=== PATIENT | female | born 1960 | race Caucasian/White ===

== ENCOUNTER 2022-06-19 14:14 | Inpatient (IN) | payer BC, OTHER ==
[~2022-06-19] VITALS: Ht 152.4 cm; Wt 67.1 kg
--- NOTE | 2022-06-19 15:10 | NUR ---
BIBRA, C/O WEAKNESS ALL OVER GENERALIZED, HEAD ACHE THAT WONT GO AWAY.
--- NOTE | 2022-06-19 15:47 | NUR ---
PT WILL BE ADMITTED TO [facility] ROOM 115 - 2, REPORT GIVEN TO LEENA HUBER ON FLOOR, WILL TRANSFER OVER WITH ONE RN ONE DELMA AND LEGAL ASSOCIATE MACHINE ON [facility]
--- NOTE | 2022-06-19 15:50 | NUR ---
BS = 47 - D5W GIVEN IV
[2022-06-19] MEDS ORDERED: DEXTROSE 50%-WATER 50 ML DISP.SYRIN ONE (15:53)
--- NOTE | 2022-06-19 15:55 | NUR ---
IV LINE IS ESTABLISHED, BLOOD SPECIMEN COLLECTED AND SENT TO THE LAB. THE LINE IS SALINE LOCKED.
[2022-06-19] MEDS ORDERED: DEXTROSE 50%-WATER 50 ML DISP.SYRIN IV ONE (16:00)
[2022-06-19] MEDS ORDERED: IV NS 0.9% 1,000 ML BAG IV ONE (16:00)
--- NOTE | 2022-06-19 16:16 | NUR ---
MOVE SHEET SUBMITTED.
--- NOTE | 2022-06-19 16:19 | NUR ---
BS = 186
[2022-06-19 16:26] LABS: CALCIUM, SERUM 8.9 mg/dL (8.5-10.1); CARBON DIOXIDE 24 mmol/L (21-32); CHLORIDE 107 mmol/L (98-107); CREATININE 1.1 mg/dL (0.6-1.3); GLUCOSE 56 mg/dL (74-106); POTASSIUM 3.5 mmol/L (3.5-5.1); SODIUM SERUM 141 mmol/L (136-145); UREA NITROGEN, BLOOD 16 mg/dL (7-18)
[2022-06-19 16:32] LABS: ALANINE AMINOTRANSFERASE 21 U/L (12-78); ALBUMIN 3.3 g/dL (3.4-5.0); ALKALINE PHOSPHATASE 76 U/L (46-116); ASPARTATE AMINOTRANSFERASE 17 U/L (15-37); BILIRUBIN,DIRECT 0.1 mg/dL (0.0-0.2); BILIRUBIN,TOTAL 0.3 mg/dL (0.2-1.0); LIPASE 154 U/L (73-393)
[2022-06-19 16:49] LABS: BASOPHILS % (AUTO) 0.4 % (0.0-2.0); EOSINOPHILS % (AUTO) 2.7 % (0.0-6.0); HEMATOCRIT 30 % (33-45); HEMOGLOBIN 10.3 g/dL (11.5-14.8); LYMPHOCYTES % (AUTO) 25.1 % (20.0-44.0); MEAN CORPUSCULAR HGB CONC 34 g/dl (31.0-36.0); MEAN CORPUSCULAR VOLUME 83 fL (82-100); MONOCYTES # (AUTO) 0.6 K/uL (0.1-1.30); MONOCYTES % (AUTO) 7.8 % (2.0-12.0); NEUTROPHILS # (AUTO) 5.2 K/uL (1.8-8.9); PLATELET COUNT (AUTO) 332 K/uL (150-450); RED BLOOD CELL COUNT(AUTO) 3.67 MIL/uL (4.0-5.2); WHITE BLOOD COUNT (AUTO) 8.1 K/uL (4.3-11.0)
[2022-06-19] MEDS ORDERED: ATOR10TA PO (17:00)
[2022-06-19] MEDS ORDERED: ERTU15TA PO (17:00)
[2022-06-19] MEDS ORDERED: OMEP40CA21 PO (17:00)
[2022-06-19] MEDS ORDERED: METF-442 PO (17:00)
[2022-06-19] MEDS ORDERED: LEVO150T8 PO (17:00)
[2022-06-19] MEDS ORDERED: GLIP10TA11 PO (17:00)
[2022-06-19] MEDS ORDERED: KETOROLAC TROMETHAMINE INJ 30 MG/ML VIAL IV ONE (20:00)
[2022-06-19] MEDS ORDERED: KETOROLAC TROMETHAMINE INJ 30 MG/ML VIAL ONE (20:07)
[2022-06-19] MEDS ORDERED: Sodium Chloride 154 MEQ in IV 10% DEXTROSE 1,000 ML IV PRN (20:30)
[2022-06-19 20:52] LABS: BILIRUBIN,URINE NEGATIVE (NEGATIVE); COLOR,URINE YELLOW (YELLOW); LEUKOCYTE ESTERASE ,URINE TRACE (NEGATIVE); NITRITE, URINE NEGATIVE (NEGATIVE); PROTEIN,URINE NEGATIVE (NEGATIVE); UGLUCOSE 100 MG/DL mg/dL (NEGATIVE); UROBILINOGEN,URINE 0.2 EU/dL (0.2)
[2022-06-19] MEDS ORDERED: IV D5/ 0.9% NACL 1,000 ML IV PRN ×2 (21:00)
[2022-06-19 21:03] LABS: BACTERIA,URINE 1+ /HPF (None Seen); CALCIUM OXALATE CRYSTALS,UR Few /HPF (None Seen); RBC,URINE 0-2 /HPF (0-2); SQUAMOUS EPITHELIAL CELL,UR Few /HPF (None Seen)
--- NOTE | 2022-06-19 21:11 | NUR ---
blood glucose 91
[2022-06-19] MEDS ORDERED: MAG HYDROX/AL HYDROX/SIMETH 30 ML UDC PO PRN (21:30)
[2022-06-19] MEDS ORDERED: MAGNESIUM HYDROXIDE 30 ML UDC PO PRN (21:30)
[2022-06-19] MEDS ORDERED: ZOLPIDEM TARTRATE 5 MG TABLET PO PRN (21:30)
[2022-06-19] MEDS ORDERED: INSULIN REGULAR, HUMAN 100 UNIT/ML 3 ML VIAL SQ PRN (21:30)
[2022-06-19] MEDS ORDERED: Z GUARD REMEDY 4 OZ OINT TP PRN (21:30)
[2022-06-19] MEDS ORDERED: IV D5/0.45 NACL 1,000 ML IV PRN ×2 (21:30→21:44)
[2022-06-19] MEDS ORDERED: DEXTROSE 50%-WATER 50 ML DISP.SYRIN IV PRN (21:30)
[2022-06-19] MEDS ORDERED: ONDANSETRON HCL/PF 4 MG/2 ML VIAL IVP PRN (21:30)
[2022-06-19] MEDS ORDERED: BLOOD SUGAR DIAGNOSTIC 1 EACH STRIP IN SCH (23:00)
--- NOTE | 2022-06-19 23:16 | NUR ---
ATTEMPTED TO GIVE REPORT, NO ANSWER
--- NOTE | 2022-06-19 23:30 | NUR ---
GAVE REPORT TO CECILE MARINELLI FOR NHAN
[2022-06-19 23:40] VITALS: BP 132/73
[2022-06-19] MEDS: ACETAMINOPHEN 325 MG TABLET PO PRN (23:52)
--- NOTE | 2022-06-19 23:59 | NUR ---
DIRECTOR OF ATHLETICS NOTES SPOKE TO CHRISTOFER VASQUEZ AND INFORM HER PATIENT LAST BLOOD SUGAR -117, GOT AN ORDER TO CHANGE ACCU CHECK Q 2 HRS TO [id number], ORDER NOTED AND CARRIED OUT
[2022-06-20] MEDS ORDERED: INSULIN REGULAR, HUMAN 100 UNIT/ML 3 ML VIAL SQ PRN
[2022-06-20 00:14] VITALS: BP 132/73
--- NOTE | 2022-06-20 00:17 | NUR ---
PT TRANSFERRED TO [facility]
--- NOTE | 2022-06-20 00:20 | NUR ---
RN NOTES PT IN BED A/O X4 KYRGYZ SPEAKING IN NO RESPIRATORY DISTRESS, ON ROOM AIR TOLERATING WELL. PT PARK TO AMBULATE TO BED WITH ASSIST. PT PLACED ON TLE MONITOR. PT NOTED WITH IV ACCESS ON THE L HAND AND RAC #20G RUNNING D5 NS @150ML/HR TOLERATING WELL BLOOD GLUCOSE CHECKED 117 AT THIS TIME. PT ORIENTED TO ROOM AND UNIT. CALL LIGHT WITHIN REACH. TABLE WITHIN REACH. HOB ELEVATE FOR SAFETY. BILATERAL SIDE RAILS UP FOR SAFETY. BED IN A LOW POSITION BED ALARM ON DUE TO REPORTED WEAKNESS.
[2022-06-20] MEDS: BLOOD SUGAR DIAGNOSTIC 1 EACH STRIP IN SCH ×5 (00:51→22:00)
--- NOTE | 2022-06-20 01:38 | NUR ---
RN NOTES PRN MALLOX GIVEN FOR PT REPORT OF GAS. TOLERATED WELL. WILL CONTINUE TO MONITOR.
[2022-06-20 08:00] VITALS: BP 115/49
--- NOTE | 2022-06-20 08:27 | NUR ---
HEATING AND VENTILATING WORKER OPENING NOTE Patient in bed, awake. A/O x 4, able to make needs known. On room air, breathing evenly and unlabored. No SOB or s/s of distress noted. IV access on RFA #20 infusing D5 1/2 NS at 100 ml/hr and left hand #20 SL intact and patent. On tele monitoring showing SR, HR on the 60's with occasional PVCs. Safety precautions in place: bed in low, locked position siderails up x 2, call light within reach. Will continue to monitor.
[2022-06-20 08:47] LABS: ALBUMIN 2.6 g/dL (3.4-5.0); BASOPHILS % (AUTO) 0.3 % (0.0-2.0); BILIRUBIN,TOTAL 0.3 mg/dL (0.2-1.0); CALCIUM, SERUM 7.9 mg/dL (8.5-10.1); CREATININE 1.1 mg/dL (0.6-1.3); EOSINOPHILS % (AUTO) 5.1 % (0.0-6.0); HEMATOCRIT 28 % (33-45); HEMOGLOBIN 9.4 g/dL (11.5-14.8); LYMPHOCYTES # (AUTO) 1.8 K/uL (0.8-4.8); LYMPHOCYTES % (AUTO) 28.3 % (20.0-44.0); MEAN CORPUSCULAR HGB CONC 34 g/dl (31.0-36.0); MEAN CORPUSCULAR VOLUME 84 fL (82-100); MONOCYTES # (AUTO) 0.5 K/uL (0.1-1.30); MONOCYTES % (AUTO) 8.2 % (2.0-12.0); NEUTROPHILS # (AUTO) 3.6 K/uL (1.8-8.9); NEUTROPHILS % (AUTO) 58.1 % (43.0-81.0); PHOSPHORUS 4.3 mg/dL (2.5-4.9); PLATELET COUNT (AUTO) 304 K/uL (150-450); POTASSIUM 3.5 mmol/L (3.5-5.1); RED BLOOD CELL COUNT(AUTO) 3.28 MIL/uL (4.0-5.2); TOTAL PROTEIN, SERUM 5.9 g/dL (6.4-8.2); WHITE BLOOD COUNT (AUTO) 6.2 K/uL (4.3-11.0)
--- NOTE | 2022-06-20 09:00 | NUR ---
RN NOTE Patient's blood glucose is 156, refused Insulin coverage. Explained the risks of not taking the medication, patient still refused. Will continue to monitor.
[2022-06-20] MEDS: LEVOTHYROXINE SODIUM 75 MCG TABLET PO SCH (09:29)
[2022-06-20] MEDS: PANTOPRAZOLE 40 MG TABLET.DR PO SCH (09:29)
--- NOTE | 2022-06-20 10:00 | NUR ---
RN NOTE IV access on RAC got infiltrated, IV access removed. Warm compress applied. Will continue to monitor.
[2022-06-20] MEDS: ACETAMINOPHEN 325 MG TABLET PO PRN ×2 (10:24→22:32)
[2022-06-20 11:29] LABS: MAGNESIUM 1.2 mg/dL (1.8-2.4)
--- NOTE | 2022-06-20 11:38 | NUR ---
RN NOTE Call received from Eugenio from lab, Mg level is 1.23. Barbara Staton DNP notified.
[2022-06-20 12:00] VITALS: BP 125/58
[2022-06-20] MEDS ORDERED: MAGNESIUM OXIDE 400 MG TABLET PO ONE (12:00)
[2022-06-20] MEDS ORDERED: DEXTROSE 50%-WATER 50 ML DISP.SYRIN IV PRN ×2 (12:00)
[2022-06-20] MEDS ORDERED: MECLIZINE HCL 12.5 MG TABLET PO PRN (12:00)
[2022-06-20] MEDS ORDERED: MECLIZINE HCL 25 MG TABLET PO PRN (12:30)
[2022-06-20] MEDS: CEFTRIAXONE 1 G in IV D5W 50 ML IV SCH (13:20)
--- NOTE | 2022-06-20 17:30 | NUR ---
RN NOTE Patient's blood glucose is 132, Insulin coverage not given. Per Barbara Staton, DNP hold diabetic medications. Patient also refusing Insulin coverage.
[2022-06-20] MEDS ORDERED: ATORVASTATIN 10 MG TABLET PO SCH (18:00)
--- NOTE | 2022-06-20 18:30 | NUR ---
RN NOTE Patient is complaining of stomach upset and loose bowel movement after taking Magnesium supplement, patient also vomited after eating dinner. Barbara Staton DNP notified, no new orders for now. Advised patient to increase fluids as tolerated.
--- NOTE | 2022-06-20 19:17 | NUR ---
KNIFER UP CLOSING NOTE Patient in bed, awake. A/O x 4, able to make needs known. Stable on room air, breathing evenly and unlabored. No SOB or s/s of distress noted. IV access on Left hand #20 infusing D5 1/2 NS at 100 ml/hr. On tele monitoring showing SR, HR on the 60's with occasional trigemeny. All needs attended to. Due meds given. Safety precautions maintained: bed in low, locked position siderails up x 2, call light within reach. Will endorse to maintenance technician 3rd shift nurse for NHAN.
[2022-06-20 20:00] VITALS: BP 133/57
--- NOTE | 2022-06-20 21:24 | NUR ---
ANALYTICS DEVELOPER OPENING NOTES: RECEIVED PATIENT AWAKE IN BED, BED IN LOW POSITION CALL LIGHTS WITHIN REACH, NOC OMPLAIN OF PAIN AND DISCOMFORT AT THIS TIME , ON ROOM AIR SATURATING WELL, PATIENT IS A/OX4 ABLE TO MAKE NEEDS KNOWN, AMBULATORY, REMIND TO USE THE CALL LIGHTS WHEN NEEDED ASSISTANCE, PATIENT ON TELE MONITORSR-74, KEPT CLEAN AND DRY ALL NEEDS MET WILL CONTINUE TO MONITOR.
--- NOTE | 2022-06-20 23:27 | NUR ---
RN NOTES: BLOOD SUGAR-121/ NO INSULIN GIVEN PER SLIDING SCALE.
[2022-06-21 00:07] VITALS: BP 121/59
[2022-06-21 06:55] LABS: BASOPHILS % (AUTO) 0.4 % (0.0-2.0); EOSINOPHILS % (AUTO) 6.4 % (0.0-6.0); HEMATOCRIT 30 % (33-45); HEMOGLOBIN 10.2 g/dL (11.5-14.8); LYMPHOCYTES # (AUTO) 2.5 K/uL (0.8-4.8); LYMPHOCYTES % (AUTO) 37.8 % (20.0-44.0); MEAN CORPUSCULAR HGB CONC 34 g/dl (31.0-36.0); MEAN CORPUSCULAR VOLUME 84 fL (82-100); MONOCYTES # (AUTO) 0.5 K/uL (0.1-1.30); MONOCYTES % (AUTO) 6.8 % (2.0-12.0); NEUTROPHILS # (AUTO) 3.2 K/uL (1.8-8.9); NEUTROPHILS % (AUTO) 48.6 % (43.0-81.0); PLATELET COUNT (AUTO) 320 K/uL (150-450); RED BLOOD CELL COUNT(AUTO) 3.56 MIL/uL (4.0-5.2); WHITE BLOOD COUNT (AUTO) 6.7 K/uL (4.3-11.0)
--- NOTE | 2022-06-21 07:00 | NUR ---
MS RN CLOSING NOTES: PATIENT SLEEP IN BED COMFORTABLY, BED IN LOW POSITION CALL LIGHTS WITHIN REACH, NO COMPLAIN OF PAIN AND DISCOMFORT AT THIS TIME ON ROOM AIR SATURATING WELL, PATIENT IS A/OX4 ABLE TO MAKE NEEDS KNOWN, WITH IV LINE AT RFA#22 WITH ONGOING D5NS @100 ML/HR INFUSING WELL, PATIENT KEPT CLEAN AND DRY ALL NEEDS MET ENDORSE TO INCOMING SHIFT.
[2022-06-21 07:11] LABS: CALCIUM, SERUM 8.1 mg/dL (8.5-10.1); MAGNESIUM 1.3 mg/dL (1.8-2.4); PHOSPHORUS 4.4 mg/dL (2.5-4.9); POTASSIUM 3.4 mmol/L (3.5-5.1)
--- NOTE | 2022-06-21 07:30 | NUR ---
RN OPENING NOTES RECEIVED PATIENT IN BED, AWAKE, A/O X4, VERBALLY RESPONSIVE. NO SIGNS OF ACUTE DISTRESS NOTED. STABLE IN ROOM AIR, NO SOB NOTED, BREATHING EVEN AND UNLABORED. DENIES ANY PAIN AT THIS TIME. NOTED WITH IV ACCESS ON RIGHT FORE ARM #20G, INTACT AND PATENT, WITH D5 NS @ 100ML/HR RUNNING. SAFETY MEASURE IN PLACE. BED IN LOWEST AND LOCKED POSITION, SIDE RAILS UP X2, CALL LIGHT PLACED WITHIN EASY REACH. WILL CONTINUE TO MONITOR PATIENT.
[2022-06-21] MEDS: BLOOD SUGAR DIAGNOSTIC 1 EACH STRIP IN SCH ×3 (08:07→17:16)
[2022-06-21] MEDS: LEVOTHYROXINE SODIUM 75 MCG TABLET PO SCH (08:17)
[2022-06-21] MEDS: PANTOPRAZOLE 40 MG TABLET.DR PO SCH (08:17)
[2022-06-21] MEDS ORDERED: POTASSIUM CHLORIDE 20 MEQ TAB.PRT.SR PO SCH (10:30)
[2022-06-21] MEDS ORDERED: CIPR-262 PO (11:24)
[2022-06-21] MEDS ORDERED: MECL-159 PO (11:31)
[2022-06-21] MEDS ORDERED: MULT-754 PO (11:31)
[2022-06-21] MEDS: INSULIN REGULAR, HUMAN 100 UNIT/ML 3 ML VIAL SQ PRN ×2 (11:51→17:17)
[2022-06-21] MEDS: Magnesium 1GM/D5W 100ML PREMIX 100 ML IV SCH ×4 (12:03→15:50)
[2022-06-21] MEDS: CEFTRIAXONE 1 G in IV D5W 50 ML IV SCH (13:03)
--- NOTE | 2022-06-21 17:40 | NUR ---
RECRUITER SPECIALIST NOTE PATIENT DISCHARGED TO HOME IN STABLE CONDITION. PATIENT ALERT AND ORIENTED X4, NO SIGNS OF ACUTE DISTRESS. IV ACCESS REMOVED, NO BLEEDING NOTED. PRESSURE DRESSING APPLIED TO SITE. ALL BELONGINGS ACCOUNTED FOR, FORM SIGNED BY PATIENT. PATIENTS SKIN INTACT, NO SKIN ISSUES NOTED. EXITCARE FOLDER GIVEN TO PATIENT, DISCHARGE INSTRUCTIONS PROVIDED WITH VERBALIZATION OF UNDERSTANDING. MEDICATION PRESCRIPTION GIVEN TO PATIENT. PATIENT LEFT UNIT @1739, AMBULATOR WITH CANE, ASSISTED TO THE LOBBY. PICKED UP BY [email or web address], CAN #[phone], WITH MANAGER PHILOSOPHY BEN. PALM AWARE OF DISCHARGE.
== END 2022-06-21 17:45 | disposition home or self-care (01) | DRG 637 ==
LOC: ER 14:25 → TELE 22:45 → MED 06-21
PROVIDERS: ADMIT Nurse Practitioner Acute Care; ATTEND Nurse Practitioner Acute Care
DX: E11.649 Type 2 diabetes mellitus with hypoglycemia without coma (principal); G93.41 Metabolic encephalopathy; N39.0 Urinary tract infection, site not specified; J98.11 Atelectasis; Z79.84 Long term (current) use of oral hypoglycemic drugs; E03.9 Hypothyroidism, unspecified; I10 Essential (primary) hypertension; D64.9 Anemia, unspecified; B96.89 Other specified bacterial agents as the cause of diseases classified elsewhere; E78.5 Hyperlipidemia, unspecified; Z88.0 Allergy status to penicillin
CPT/HCPCS: 36415; 70450-TC; 71045-TC; 80048-TC; 80053-TC; 80076-TC; 81001; 82962-TC; 83690-TC; 83735-TC; 84100-TC; 84484-TC; 85025-TC; 85730-TC; 87040-TC; 87081-TC; 87086-TC; C9803; G0378; J0696; J1815; J1885; J3475; J3490; J7042; J7050; J7060; J8597